=== PATIENT | male | born 1940 | race Caucasian/White ===

== ENCOUNTER 2018-02-16 19:44 | Emergency (ER) | payer MEDICARE, BC | END 2018-02-16 20:16 | disposition home or self-care (01) | LOC: BURERS 19:44 | DX: S30.0XXA Contusion of lower back and pelvis, initial encounter (principal); Z79.899 Other long term (current) drug therapy; Z79.82 Long term (current) use of aspirin; W17.89XA Other fall from one level to another, initial encounter | CPT/HCPCS: 99283 ==